=== PATIENT | male | born 1980 | race Caucasian/White ===

== ENCOUNTER 2024-01-09 12:06 | Emergency (ER) | payer BC, SELFPAY ==
[2024-01-09 12:07] VITALS: BP 123/81; PULSE 54; RESP 22; TEMP 36.8; O2SAT 98
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
--- NOTE | 2024-01-09 12:45 | DI.RAD_ITS ---
Exam(s) XR CHEST 2V PA LATERAL EXAM: XR CHEST 2V PA LATERAL CLINICAL HISTORY: Sore chest and history of fall. TECHNIQUE: 2D digital imaging was performed. COMPARISON: No exams were available for comparison FINDINGS: 2 views: Heart size is normal. The mediastinum is not widened. Lungs are clear. No infiltrates nor pleural effusions. Left chest wall deformity noted at the level of the 5th-6 ribs. No obvious rib lesion identified. IMPRESSION: No acute pulmonary findings.Left chest wall 5th rib deformity DATA REPOSITORY: RADIATION DOSE DELIVERED:
[2024-01-09] MEDS: Tetanus & Diphtheria Tox,ADULT 0.5 ML VIAL IM (13:36)
== END 2024-01-09 14:29 | disposition home or self-care (01) ==
LOC: ER 14:14 → RED 14:29
PROVIDERS: Emergency Provider Emergency Medicine; PCP Internal Medicine
DX: S20.212A Contusion of left front wall of thorax, initial encounter (principal); S40.212A Abrasion of left shoulder, initial encounter; Z23 Encounter for immunization; V18.4XXA Pedal cycle driver injured in noncollision transport accident in traffic accident, initial encounter; Y92.414 Local residential or business street as the place of occurrence of the external cause; Y93.55 Activity, bike riding
CPT/HCPCS: 90471; 90714; 99283; 71046